=== PATIENT | female | born 1945 | race Caucasian/White ===

== ENCOUNTER 2017-04-20 08:54 | Emergency (ER) | payer MEDICARE, OTHER ==
--- NOTE | 2017-04-20 09:12 | ED Physician Documentation ---
PD HPI FEMALE - Stated complaint Stated Complaint: FEMALE - Chief complaint Chief Complaint: UTI - History obtained from History obtained from: Patient - History of Present Illness Timing - onset: How many days ago (3) Timing - duration: Days (3) Timing - details: Gradual onset Pain level max: 6 Pain level max: 4 Associated symptoms: Abdominal pain (RLQ), Back pain (chronic L5 back pain), Hematuria (pink today). No: Fever, Chest/shoulder pain, Vaginal discharge, Genital sore/lesion, Dysuria, Urinary frequency Similar symptoms before: Has not had sx before Recently seen: Not recently seen Review of Systems Ten Systems: 10 systems reviewed and negative Constitutional: denies: Fever, Chills Nose: denies: Rhinorrhea / runny nose, Congestion Throat: denies: Sore throat Respiratory: denies: Cough GI: denies: Nausea, Vomiting, Diarrhea Skin: denies: Rash Musculoskeletal: denies: Neck pain, Back pain Neurologic: denies: Focal weakness, Numbness, Headache PD PAST MEDICAL HISTORY - Past Medical History Past Medical History: Yes Cardiovascular: Hypertension, High cholesterol, Coronary artery disease Endocrine/Autoimmune: Type 2 diabetes, HyPOthyroidism - Past Surgical History Past Surgical History: Yes /INSPECTOR REPAIRER: Hysterectomy Cardiovascular: Coronary stent HEENT: Tonsil/Adenoidectomy - Present Medications Home Medications: Ambulatory Orders Medication Instructions Recorded Confirmed Aspirin [Aspir 81] 81 mg PO DAILY 07/16/13 04/20/17 Atenolol [Tenormin] 50 mg PO DAILY 07/16/13 04/20/17 Cetirizine HCl [Zyrtec] 10 mg PO DAILY 07/16/13 04/20/17 Levothyroxine Sodium [Levothroid] 50 mcg PO DAILY 07/16/13 04/20/17 Meclizine HCl 25 mg PO TID 07/16/13 04/20/17 Montelukast Sodium 10 mg PO DAILY 07/16/13 04/20/17 Sertraline HCl [Zoloft] 50 mg PO DAILY 07/16/13 04/20/17 Simvastatin [Zocor] 40 mg PO QPM 07/16/13 04/20/17 Nitrofurantoin [Macrobid] 100 mg PO BID #10 capsule 04/20/17 - Allergies Allergies/Adverse Reactions: Allergies Allergy/AdvReac Type Severity Reaction Status Date / Time amoxicillin trihydrate * Allergy Hives Verified 07/16/13 08:08 [From Augmentin] levocetirizine Allergy Rash Verified 07/16/13 08:07 dihydrochloride * [From Xyzal] potassium clavulanate * Allergy Hives Verified 07/16/13 08:08 [From Augmentin] sulfamethoxazole Allergy Rash Verified 07/16/13 08:08 [From Bactrim] Tetracyclines Allergy Rash Verified 07/16/13 08:06 trimethoprim [From Bactrim] Allergy Rash Verified 07/16/13 08:08 - Social History Does the pt smoke?: Yes Smoking Status: Current some day smoker Does the pt drink ETOH?: No Does the pt have substance abuse?: No - POLST Patient has POLST: No PD ED PE NORMAL - Vitals Vital signs reviewed: Yes - General General: Alert and oriented X 3, No acute distress - HEENT HEENT: Moist mucous membranes - Neck Neck: Supple, no meningeal sign - Cardiac Cardiac: RRR - Respiratory Respiratory: No respiratory distress, Clear bilaterally - Abdomen Abdomen: Soft, Other (TTP RLQ at McBurney's point. + guarding. + obturator and heel tap. ) - Back Back: No spinal TTP - Derm Derm: Warm and dry - Neuro Neuro: Alert and oriented X 3 - Psych Psych: Normal mood, Normal affect Results - Vitals Vitals: Vital Signs - 24 hr 04/20/17 04/20/17 08:57 11:26 Temperature 36.3 C L Heart Rate 73 60 Respiratory 18 17 Rate Blood Pressure 125/55 L 152/65 H O2 Saturation 99 100 Oxygen O2 Source Room air - Labs Labs: Laboratory Tests 04/20/17 04/20/17 04/20/17 09:07 09:30 09:30 WBC 9.6 RBC 4.76 Hgb 14.2 Hct 42.3 MCV 88.8 MCH 29.9 MCHC 33.6 RDW 13.7 Plt Count 180 MPV 8.2 Neut # 7.0 H Lymph # 1.5 [place] # 0.8 Eos # 0.3 Baso # 0.1 Absolute Nucleated RBC 0.01 Nucleated RBCs 0.1 Sodium 137 Potassium 4.2 Chloride 103 Carbon Dioxide 27 Anion Gap 7.0 BUN 13 Creatinine 1.1 H Estimated GFR (MDRD) 49 L Glucose 125 H Calcium 9.2 Total Bilirubin 0.9 AST 20 ALT 17 Alkaline Phosphatase 57 Total Protein 7.1 Albumin 3.9 Globulin 3.2 Albumin/Globulin Ratio 1.2 Lipase 34 Urine Color DARK YELLOW Urine Clarity CLOUDY Urine pH 7.0 Ur Specific Mcdermitt 1.020 Urine Protein 100 H Urine Glucose (UA) NEGATIVE Urine Ketones NEGATIVE Urine Occult Blood LARGE H Urine Nitrite POSITIVE H Urine Bilirubin UNREPORTABLE Urine Urobilinogen 1 (NORMAL) Ur Leukocyte Esterase MODERATE H Ur Microscopic Review NOT INDICATED Urine Culture Comments INDICATED - Rads (name of study) CT abd/pelvis Radiology: Prelim report reviewed, EMP read contemporaneously, See rad report ( Mild diffuse urinary bladder wall prominence. Question cystitis. Diverticulosis without convincing evidence for diverticulitis. Small normal appendix versus appendiceal stump posterior to cecum. No evidence for appendicitis. ) PD MEDICAL DECISION MAKING - ED course Complexity details: reviewed results, re-evaluated patient, considered differential, d/w patient ED course: Patient is a 72-year-old female who presents to the emergency department what appears to be a UTI. She is however very tender in the right lower quadrant near [facility] site, therefore a CT was performed. No acute findings on CT. Will place on antibiotics and follow-up with her doctor. She is well-appearing , nontoxic. Afebrile. Patient counseled regarding signs and symptoms for which I believe and urgent re-evaluation would be necessary. Patient with good understanding of and agreement to plan and is comfortable going home at this time This document was made in part using voice recognition software. While efforts are made to proofread this document, sound alike and grammatical errors may occur. Departure - Departure Disposition: 01 Home, Self Care Clinical Impression: Urinary tract infection Qualifiers: Urinary tract infection type: acute cystitis Hematuria presence: with hematuria Qualified Code(s): N30.01 - Acute cystitis with hematuria Condition: Good Instructions: ED UTI Cystitis Female Follow-Up: Charito Mireles PA-C [Primary Care Provider] - Within 1 week Prescriptions: Nitrofurantoin [Macrobid] 100 mg PO BID #10 capsule Comments: Take all antibiotics until gone. Return if you worsen. Discharge Date/Time: 04/20/17 11:47
[2017-04-20] MEDS ORDERED: SODIUM CHLORIDE 0.9% 1,000 ML IV ONE (09:20)
[2017-04-20] MEDS ORDERED: SODIUM CHLORIDE FLUSH 0.9% 10 ML SYRINGE IVP ONE (09:24)
[2017-04-20 09:35] LABS: BILIRUBIN,URINE UNREPORTABLE (NEGATIVE); UA CHARGE (STRIP ONLY) YES
[2017-04-20 09:35] LABS: BASOPHILS # (AUTO) 0.1 10^3/uL (0.0-0.1); BASOPHILS % (AUTO) 0.7 %; EOSINOPHILS # (AUTO) 0.3 10^3/uL (0.0-0.7); EOSINOPHILS % (AUTO) 2.7 %; HCT - HEMATOCRIT 42.3 % (37.0-47.0); HGB - HEMOGLOBIN 14.2 g/dL (12.0-16.0); LYMPHOCYTES # (AUTO) 1.5 10^3/uL (1.5-3.5); LYMPHOCYTES % (AUTO) 15.7 %; MEAN CORPUSCULAR HEMOGLOBIN 29.9 pg (27.0-31.0); MEAN CORPUSCULAR HGB CONC 33.6 g/dL (32.0-36.0); MEAN CORPUSCULAR VOLUME 88.8 fL (81.0-99.0); MEAN PLATELET VOLUME 8.2 fL (7.9-10.8); MONOCYTES # (AUTO) 0.8 10^3/uL (0.0-1.0); NEUTROPHILS % (AUTO) 72.9 %; NUCLEATED RED BLOOD CELLS AUTO 0.1 /100WBC; RED BLOOD COUNT 4.76 10^6/uL (4.20-5.40); RED CELL DISTRIBUTION WIDTH 13.7 % (12.0-15.0); UNCORRECTED WHITE BLOOD COUNT 9.6 x10^3/uL; WHITE BLOOD COUNT 9.6 x10^3/uL (4.8-10.8)
[2017-04-20 09:36] LABS: UR CULTURE IF IND INDICATED
[2017-04-20 09:47] LABS: ALBUMIN/GLOBULIN RATIO 1.2 (1.0-2.2); BILIRUBIN,TOTAL 0.9 mg/dL (0.2-1.0); CALCIUM 9.2 mg/dL (8.5-10.3); CREATININE 1.1 mg/dL (0.4-1.0); POTASSIUM 4.2 mmol/L (3.5-5.0); TOTAL PROTEIN 7.1 g/dL (6.7-8.2)
[2017-04-20] MEDS ORDERED: IOPAMIDOL-300 100 ML VIAL IVP ONE (11:04)
[2017-04-20 11:26] VITALS: BP 152/65
--- NOTE | 2017-04-20 11:28 | CT Preliminary Report ---
Exam: CT Abdomen/Pelvis W/ IMPRESSION: 1. Mild diffuse urinary bladder wall prominence. Question cystitis. 2. Diverticulosis without convincing evidence for diverticulitis. 3. Small normal appendix versus appendiceal stump posterior to cecum. No evidence for appendicitis. [facility] SITE ID: [id number]
--- NOTE | 2017-04-20 11:30 | CT Report ---
EXAM: CT ABDOMEN AND PELVIS EXAM DATE: 04/20/2017 11:05 AM. CLINICAL HISTORY: RLQ pain. COMPARISONS: None. TECHNIQUE: Routine helical CT imaging was performed through the abdomen and pelvis. IV contrast: 100 cc Isovue 300. Enteric contrast: No. Reconstructions: Coronal and sagittal. In accordance with CT protocol optimization, one or more of the following dose reduction techniques w ere utilized for this exam: automated exposure control, adjustment of mA and/or KV based on patient s ize, or use of iterative reconstructive technique. FINDINGS: Lung Bases: At least moderate coronary arterial calcification. Liver: 1.8 cm right liver lobe cyst. No suspicious mass. Gallbladder/Bile Ducts: Unremarkable. Spleen: Normal. Pancreas: Normal. Adrenal Glands: Normal. Kidneys: 2.1 cm posterior left upper renal cyst. No hydronephrosis involving either kidney. Peritoneal Cavity/Bowel: Diverticulosis. Sigmoid colon is poorly distended, potentially limiting eval uation. No definite inflammatory changes. No dilated bowel. Liquid stool noted in nondilated cecum wi thin ventral right hemipelvis. Small normal appendix versus appendiceal stump posterior to cecum. Pelvic Organs: Prior hysterectomy. No bladder stone or obvious mass. Bladder is only partially disten ded. Mild diffuse bladder wall prominence. Vasculature: Extensive atherosclerotic arterial calcifications. No abdominal aortic aneurysm. Bones: Lumbar spine degenerative changes. Grade 1 anterolisthesis of L4 on L5 vertebral body. Grade 1 retrolisthesis of L2 on L3 vertebral body. Other: None. IMPRESSION: 1. Mild diffuse urinary bladder wall prominence. Question cystitis. 2. Diverticulosis without convincing evidence for diverticulitis. 3. Small normal appendix versus appendiceal stump posterior to cecum. No evidence for appendicitis. [facility] Referring Provider Line: [phone] SITE ID: [id number]
== END 2017-04-20 11:47 | disposition home or self-care (01) ==
LOC: ED 08:54
DX: I10 Essential (primary) hypertension (principal); E78.00 Pure hypercholesterolemia, unspecified; I25.10 Atherosclerotic heart disease of native coronary artery without angina pectoris; E11.9 Type 2 diabetes mellitus without complications; E03.9 Hypothyroidism, unspecified; Z79.82 Long term (current) use of aspirin; F17.200 Nicotine dependence, unspecified, uncomplicated
CPT/HCPCS: 36415; 74177; 80053; 81003; 83690; 85025; 87086; 96360; 99283; Q9967; 81001

== ENCOUNTER 2017-05-26 10:04 | Outpatient (CLI) | payer MEDICARE, OTHER ==
[2017-05-26 14:35] LABS: ALBUMIN/GLOBULIN RATIO 1.3 (1.0-2.2); BILIRUBIN,TOTAL 0.9 mg/dL (0.2-1.0); BUN - BLOOD UREA NITROGEN 14 mg/dL (6-20); CALCIUM 9.1 mg/dL (8.5-10.3); CARBON DIOXIDE - CO2 27 mmol/L (21-32); CHLORIDE 106 mmol/L (101-111); CHOL/HDL RATIO 4.6 (<4.4); CHOLESTEROL 143 mg/dL; CREATININE 0.9 mg/dL (0.4-1.0); GFR - MDRD 62 (>89); GLUCOSE 98 mg/dL (70-100); HDL CHOLESTEROL 31 mg/dL; LDL/HDL RATIO 2.5 (<4.4); POTASSIUM 4.7 mmol/L (3.5-5.0); SODIUM 137 mmol/L (135-145); TOTAL PROTEIN 6.6 g/dL (6.7-8.2); TRIGLYCERIDES 172 mg/dL; VLDL CHOLESTEROL 34 mg/dL
== END 2017-05-26 10:05 | disposition home or self-care (01) ==
LOC: LAB.WCP 10:04
PROVIDERS: ATTEND Physician Assistant Medical
DX: E78.5 Hyperlipidemia, unspecified (principal); E03.9 Hypothyroidism, unspecified
CPT/HCPCS: 36415; 80053; 80061; 84443

== ENCOUNTER 2017-11-17 12:32 | Outpatient (CLI) | payer MEDICARE, OTHER ==
--- NOTE | 2017-11-17 15:03 | Ultrasound Report ---
CAROTID DUPLEX: 11/17/2017 CLINICAL INDICATION: Right-sided bruit. TECHNIQUE: Real-time sonographic vascular imaging was performed by the air reduction equipment operator through the carotid arteries utilizing both color-flow and Doppler spectral analysis. Multiple major account representative static images were saved for review. RIGHT Vessel PSV cm/sec EDV cm/sec ICA/CCA RSV Ratio Degree of Stenosis Plaque Estimate % RCCA Prox 85 RCCA Dist 51 11 RECA 393 RT BULB 390 59 7.6 >70 HETAL Prox 406 55 7.9 >70 HETAL Mid 168 3.2 3.2 >70 HETAL Dist 98 2.2 1.9 RVA 56 RVA flow direction: Antegrade LEFT Vessel PSV cm/sec EDV cm/sec ICA/CCA RSV Ratio Degree of Stenosis Plaque Estimate % LCCA Prox 113 LCCA Dist 99 25 LECA 183 LFT BULB 223 59 2.2 50-69 LICA Prox 192 55 1.9 LICA Mid 110 36 1.1 LICA Dist 77 25 .77 LVA 75 LVA flow direction: Antegrade Velocity criteria are extrapolated from diameter data as defined by the Society of Radiologists in Ultrasound Consensus Conference Radiology 2003; 229; 340-346. Degree of Stenosis % ICA PSV cm/sec ICA EDV cm/sec ICA/CCA PSV Ratio Plaque Estimate % Normal < 125 < 40 < 2.0 None <50 < 125 <40 < 2.0 < 50 50-69 125-130 40-100 2.0-4.0 >/=50 >/=70 but less than near occlusion > 230 > 100 > 4.0 >/=50 Near occlusion High, low or undetectable Variable Variable Visible Total occlusion Undetectable Not applicable Not applicable No detectable lumen FINDINGS RIGHT: There is extensive calcified plaquing in the right carotid bifurcation and proximal internal carotid artery, producing greater than 70% luminal diameter stenosis by velocity criteria. LEFT: There is calcified plaquing in the left carotid bifurcation, producing 50- 70% luminal diameter stenosis of the carotid bulb by velocity criteria. The vertebral arteries demonstrate antegrade flow bilaterally. IMPRESSION: RIGHT WORSE THAN LEFT CAROTID PLAQUING, PRODUCING GREATER THAN 70% LUMINAL DIAMETER NARROWING OF THE PROXIMAL RIGHT INTERNAL CAROTID ARTERY BY VELOCITY CRITERIA. MTDD
== END 2017-11-17 12:33 | disposition home or self-care (01) ==
LOC: DI 12:32
PROVIDERS: ATTEND Physician Assistant Medical
DX: I65.23 Occlusion and stenosis of bilateral carotid arteries (principal)
CPT/HCPCS: 93880

== ENCOUNTER 2019-01-12 08:00 | Outpatient (CLI) | payer MEDICARE, OTHER ==
[2019-01-12 13:33] LABS: HB2 TOTAL 15.3 g/dL; HEMOGLOBIN A1C 0.65 g/dL
[2019-01-12 13:38] LABS: ALBUMIN 3.7 g/dL (3.2-5.5); ALBUMIN/GLOBULIN RATIO 1.2 (1.0-2.2); ALKALINE PHOSPHATASE 70 IU/L (42-121); ALT ALANINE AMINOTRANSFERASE 21 IU/L (10-60); AST ASPARTATE AMINOTRANSFERASE 26 IU/L (10-42); BILIRUBIN,TOTAL 0.7 mg/dL (0.2-1.0); BUN - BLOOD UREA NITROGEN 15 mg/dL (6-20); CALCIUM 9.2 mg/dL (8.5-10.3); CARBON DIOXIDE - CO2 27 mmol/L (21-32); CHLORIDE 105 mmol/L (101-111); CHOL/HDL RATIO 3.4 (<4.4); CHOLESTEROL 130 mg/dL; CREATININE 0.9 mg/dL (0.4-1.0); GFR - MDRD 61 (>89); GLUCOSE 119 mg/dL (70-100); HDL CHOLESTEROL 38 mg/dL; LDL CHOLESTEROL,CALCULATED 68 mg/dL; LDL/HDL RATIO 1.8 (<4.4); SODIUM 138 mmol/L (135-145); TOTAL PROTEIN 6.7 g/dL (6.7-8.2); VLDL CHOLESTEROL 24 mg/dL
== END 2019-01-12 08:01 | disposition home or self-care (01) ==
LOC: LAB.WCP 08:00
PROVIDERS: ATTEND Physician Assistant Medical
DX: E78.5 Hyperlipidemia, unspecified (principal); E11.9 Type 2 diabetes mellitus without complications; I10 Essential (primary) hypertension
CPT/HCPCS: 36415; 80053; 80061; 83036; 83721; 84443

== ENCOUNTER 2021-01-17 08:00 | Outpatient (CLI) | payer MEDICARE, OTHER ==
[2021-01-17 18:34] LABS: CREATININE,URINE 152.6 mg/dL; MICROALBUMIN,URINE 0.3 mg/dL (0-300.0)
[2021-01-17 18:35] LABS: BASOPHILS # (AUTO) 0.1 10^3/uL (0.0-0.1); BASOPHILS % (AUTO) 0.5 %; EOSINOPHILS # (AUTO) 0.2 10^3/uL (0.0-0.7); EOSINOPHILS % (AUTO) 1.9 %; HCT - HEMATOCRIT 48.9 % (37.0-47.0); HGB - HEMOGLOBIN 15.5 g/dL (12.0-16.0); LYMPHOCYTES # (AUTO) 1.8 10^3/uL (1.5-3.5); LYMPHOCYTES % (AUTO) 18.2 %; MEAN CORPUSCULAR HEMOGLOBIN 30.8 pg (27.0-31.0); MEAN CORPUSCULAR HGB CONC 31.7 g/dL (32.0-36.0); MEAN CORPUSCULAR VOLUME 97.2 fL (81.0-99.0); MEAN PLATELET VOLUME 11.2 fL (7.9-10.8); MONOCYTES # (AUTO) 0.6 10^3/uL (0.0-1.0); MONOCYTES % (AUTO) 6.1 %; NEUTROPHILS # (AUTO) 7.2 10^3/uL (1.5-6.6); NEUTROPHILS % (AUTO) 72.9 %; PLT - PLATELET COUNT 218 10^3/uL (130-450); RED BLOOD COUNT 5.03 10^6/uL (4.20-5.40); RED CELL DISTRIBUTION WIDTH 13.6 % (12.0-15.0); WHITE BLOOD COUNT 9.9 x10^3/uL (4.8-10.8)
[2021-01-17 18:42] LABS: ALBUMIN 4.1 g/dL (3.2-5.5); ALBUMIN/GLOBULIN RATIO 1.2 (1.0-2.2); ALKALINE PHOSPHATASE 65 IU/L (42-121); ALT ALANINE AMINOTRANSFERASE 13 IU/L (10-60); AST ASPARTATE AMINOTRANSFERASE 16 IU/L (10-42); BUN - BLOOD UREA NITROGEN 20 mg/dL (6-20); CALCIUM 9.4 mg/dL (8.5-10.3); CARBON DIOXIDE - CO2 28 mmol/L (21-32); CHLORIDE 100 mmol/L (101-111); CHOL/HDL RATIO 3.8 (<4.4); CHOLESTEROL 146 mg/dL; GFR - MDRD 54 (>89); GLUCOSE 114 mg/dL (70-100); HDL CHOLESTEROL 38 mg/dL; LDL CHOLESTEROL,CALCULATED 68 mg/dL; LDL/HDL RATIO 1.8 (<4.4); POTASSIUM 4.8 mmol/L (3.5-5.0); SODIUM 139 mmol/L (135-145); TOTAL PROTEIN 7.5 g/dL (6.7-8.2); TRIGLYCERIDES 200 mg/dL; VLDL CHOLESTEROL 40 mg/dL
[2021-01-17 18:57] LABS: THYROID STIMULATING HORMONE 1.83 uIU/mL (0.34-5.60)
[2021-01-17 19:00] LABS: ESTIMATED AVERAGE GLUCOSE 128 mg/dL (70-100); HEMOGLOBIN A1c% 6.1 % (4.27-6.07)
== END 2021-01-17 23:59 | disposition home or self-care (01) ==
LOC: LAB.WCP 08:00
PROVIDERS: ATTEND Physician Assistant Medical
DX: E78.5 Hyperlipidemia, unspecified (principal); E11.9 Type 2 diabetes mellitus without complications; E03.9 Hypothyroidism, unspecified; J30.2 Other seasonal allergic rhinitis; R35.1 Nocturia
CPT/HCPCS: 36415; 80053; 80061; 82043; 82570; 83036; 83721; 84443; 85025; 87077; 87086

== ENCOUNTER 2021-09-12 08:00 | Outpatient (CLI) | payer MEDICARE, OTHER ==
[2021-09-12 18:20] LABS: BASOPHILS # (AUTO) 0.1 10^3/uL (0.0-0.1); BASOPHILS % (AUTO) 0.5 %; EOSINOPHILS # (AUTO) 0.2 10^3/uL (0.0-0.7); EOSINOPHILS % (AUTO) 2.5 %; HCT - HEMATOCRIT 45.5 % (37.0-47.0); HGB - HEMOGLOBIN 14.7 g/dL (12.0-16.0); LYMPHOCYTES # (AUTO) 1.7 10^3/uL (1.5-3.5); LYMPHOCYTES % (AUTO) 17.9 %; MEAN CORPUSCULAR HEMOGLOBIN 31.2 pg (27.0-31.0); MEAN CORPUSCULAR HGB CONC 32.3 g/dL (32.0-36.0); MEAN CORPUSCULAR VOLUME 96.6 fL (81.0-99.0); MEAN PLATELET VOLUME 10.8 fL (7.9-10.8); MONOCYTES # (AUTO) 0.7 10^3/uL (0.0-1.0); MONOCYTES % (AUTO) 7.7 %; NEUTROPHILS # (AUTO) 6.7 10^3/uL (1.5-6.6); NEUTROPHILS % (AUTO) 70.8 %; PLT - PLATELET COUNT 251 10^3/uL (130-450); RED BLOOD COUNT 4.71 10^6/uL (4.20-5.40); WHITE BLOOD COUNT 9.4 x10^3/uL (4.8-10.8)
[2021-09-12 18:25] LABS: CREATININE,URINE 185.5 mg/dL; MICROALBUM/CREATININE RATIO,UR 1.1 ug/mg (<30.0); MICROALBUMIN,URINE 0.2 mg/dL (0-300.0)
[2021-09-12 18:40] LABS: BUN - BLOOD UREA NITROGEN 23 mg/dL (6-20); CALCIUM 9.5 mg/dL (8.5-10.3); CARBON DIOXIDE - CO2 27 mmol/L (21-32); CHLORIDE 101 mmol/L (101-111); CHOL/HDL RATIO 4.8 (<4.4); CHOLESTEROL 140 mg/dL; GFR - MDRD 54 (>89); GLUCOSE 111 mg/dL (70-100); HDL CHOLESTEROL 29 mg/dL; LDL CHOLESTEROL,CALCULATED 73 mg/dL; LDL/HDL RATIO 2.5 (<4.4); POTASSIUM 4.8 mmol/L (3.5-5.0); SODIUM 136 mmol/L (135-145); TRIGLYCERIDES 190 mg/dL; VLDL CHOLESTEROL 38 mg/dL
[2021-09-12 18:48] LABS: THYROID STIMULATING HORMONE 1.99 uIU/mL (0.34-5.60)
[2021-09-12 20:54] LABS: ESTIMATED AVERAGE GLUCOSE 126 mg/dL (70-100)
== END 2021-09-12 23:59 ==
LOC: LAB.WCP 08:00
PROVIDERS: ATTEND Physician Assistant Medical
DX: I25.10 Atherosclerotic heart disease of native coronary artery without angina pectoris (principal); E11.9 Type 2 diabetes mellitus without complications; E03.9 Hypothyroidism, unspecified; J30.2 Other seasonal allergic rhinitis
CPT/HCPCS: 36415; 80048; 80061; 82043; 82570; 83036; 83721; 84443; 85025

== ENCOUNTER 2023-01-14 15:31 | Emergency (ER) | payer MEDICARE, OTHER ==
[2023-01-14 16:06] LABS: BASOPHILS % (AUTO) 0.3 %; EOSINOPHILS # (AUTO) 0.1 10^3/uL (0.0-0.7); EOSINOPHILS % (AUTO) 0.8 %; HCT - HEMATOCRIT 36.3 % (37.0-47.0); HGB - HEMOGLOBIN 11.3 g/dL (12.0-16.0); LYMPHOCYTES # (AUTO) 1.5 10^3/uL (1.5-3.5); LYMPHOCYTES % (AUTO) 9.6 %; MEAN CORPUSCULAR HEMOGLOBIN 27.6 pg (27.0-31.0); MEAN CORPUSCULAR HGB CONC 31.1 g/dL (32.0-36.0); MEAN CORPUSCULAR VOLUME 88.5 fL (81.0-99.0); MEAN PLATELET VOLUME 8.6 fL (7.9-10.8); MONOCYTES # (AUTO) 0.9 10^3/uL (0.0-1.0); MONOCYTES % (AUTO) 5.9 %; NEUTROPHILS % (AUTO) 82.4 %; PLT - PLATELET COUNT 374 10^3/uL (130-450); WHITE BLOOD COUNT 15.7 x10^3/uL (4.8-10.8)
--- NOTE | 2023-01-14 16:08 | ED Physician Documentation ---
History of Present Illness - Stated complaint Stated Complaint: CHEST PX/SOA - Chief complaint Chief Complaint: Resp - Additonal information Additional information: 77-year-old female presents to the emergency department with her daughter for evaluation of worsening dyspnea and chest pain. The patient provides most of the history. She continues to be an active daily tobacco user. States she has had chest pain and shortness of breath for years though it acutely worse over the last week. Her daughter reports that years ago she was told about a mass within her chest while being cared for at [facility] and the patient did not follow-up. Patient states she is lost 50 pounds over the last year. She is chronically fatigued. The patient is not good at follow-up with her PCP. Reportedly she takes atenolol for hypertension and levothyroxine only. She also has a history of right ICA stenting. Has not had follow-up of this in years. She has no focal or lateralizing neurodeficits. At the bedside her daughter is crying and tearful. Frustrated that her mother has not followed up or gotten care recently. Review of Systems Constitutional: denies: Fatigue, Weight Loss Eyes: reports: Reviewed and negative Nose: reports: Reviewed and negative Cardiac: reports: Chest pain / pressure. denies: Palpitations, Pedal edema, Calf pain Respiratory: reports: Dyspnea. denies: Cough, Hemoptysis, Wheezing GI: reports: Reviewed and negative : reports: Reviewed and negative Skin: reports: Reviewed and negative PD PAST MEDICAL HISTORY - Past Medical History Cardiovascular: Hypertension, High cholesterol, Coronary artery disease Endocrine/Autoimmune: Type 2 diabetes, HyPOthyroidism - Past Surgical History Past Surgical History: Yes /CONTINUOUS IMPROVEMENT BLACK BELT: Hysterectomy Cardiovascular: Coronary stent HEENT: Tonsil/Adenoidectomy - Present Medications Home Medications: Ambulatory Orders Medication Instructions Recorded Confirmed Aspirin [Aspir 81] 81 mg PO DAILY 07/16/13 04/20/17 Cetirizine HCl [Zyrtec] 10 mg PO DAILY 07/16/13 04/20/17 Levothyroxine Sodium [Levothroid] 50 mcg PO DAILY 07/16/13 04/20/17 Meclizine HCl 25 mg PO TID 07/16/13 04/20/17 Montelukast Sodium 10 mg PO DAILY 07/16/13 04/20/17 Sertraline HCl [Zoloft] 50 mg PO DAILY 07/16/13 04/20/17 Simvastatin [Zocor] 40 mg PO QPM 07/16/13 04/20/17 atenoloL [Tenormin] 50 mg PO DAILY 07/16/13 04/20/17 Nitrofurantoin [Macrobid] 100 mg PO BID #10 capsule 04/20/17 - Allergies Allergies/Adverse Reactions: Allergies Allergy/AdvReac Type Severity Reaction Status Date / Time amoxicillin trihydrate * Allergy Hives Verified 01/14/23 15:43 [From Augmentin] levocetirizine Allergy Rash Verified 01/14/23 15:43 dihydrochloride * [From Xyzal] potassium clavulanate * Allergy Hives Verified 01/14/23 15:43 [From Augmentin] sulfamethoxazole Allergy Rash Verified 01/14/23 15:43 [From Bactrim] Tetracyclines Allergy Rash Verified 01/14/23 15:43 trimethoprim [From Bactrim] Allergy Rash Verified 01/14/23 15:43 - Social History Does the pt smoke?: Yes Smoking Status: Current some day smoker Does the pt drink ETOH?: No Does the pt have substance abuse?: No - POLST Patient has POLST: No PD ED PE NORMAL - General General: Alert and oriented X 3, Well developed/nourished (Thin cachectic geriatric appearance). No: No acute distress (Mild tachypnea at rest. Room air saturations 94 to 98%. Speaking in full sentences) - HEENT HEENT: Atraumatic. No: Dentition benign (Adentulous) - Neck Neck: Supple, no meningeal sign. No: No adenopathy - Cardiac Cardiac: RRR, Strong equal pulses. No: No murmur (3/6 systolic murmur) - Respiratory Respiratory: No respiratory distress. No: Clear bilaterally (Diffusely diminished breath sounds in the right upper middle and lower lobes. Clear breath sounds left) - Abdomen Abdomen: Normal bowel sounds, Soft - Extremities Extremities: No deformity, No tenderness to palpate, Normal ROM s pain, No edema, Other - Neuro Neuro: Alert and oriented X 3, elevator erector helper 2-12 intact, No motor deficit Eye Opening: Spontaneous Motor: Obeys Commands Verbal: Oriented GCS Score: 15 Results - Vitals Vitals: Vital Signs - 24 hr 01/14/23 01/14/23 01/14/23 15:39 16:30 17:52 Temperature 36.1 C L Heart Rate 79 71 88 Respiratory 20 16 16 Rate Blood Pressure 104/45 L 124/72 138/69 H O2 Saturation 99 94 93 01/14/23 01/14/23 01/14/23 19:58 20:30 21:39 Temperature Heart Rate 80 86 80 Respiratory 18 22 15 Rate Blood Pressure 131/53 H 149/134 H 164/50 H O2 Saturation 92 96 92 Oxygen O2 Source Room air - EKG (time done) 1544 EKG releavant findings:: EKG personally interpreted by author of this note. Relevant findings are: Rate: Rate (enter#) (79) Rhythm: NSR [place]: Normal Intervals: Normal TN. No: Prolonged QT QRS: Normal Ischemia: Q waves (V5-V^) Compare to prior EKG: Old EKG unavailable Computer interpretation: Agree with computer - Labs Labs: Laboratory Tests 01/14/23 01/14/23 01/14/23 16:00 16:00 16:00 WBC 15.7 H RBC 4.10 L Hgb 11.3 L Hct 36.3 L MCV 88.5 MCH 27.6 MCHC 31.1 L RDW 15.0 Plt Count 374 MPV 8.6 Neut # (Auto) 13.0 H Lymph # (Auto) 1.5 Henry # (Auto) 0.9 Eos # (Auto) 0.1 Baso # (Auto) 0.0 Absolute Nucleated RBC 0.00 Nucleated RBC % 0.0 Sodium 131 L Potassium 4.5 Chloride 93 L Carbon Dioxide 28 Anion Gap 10.0 BUN 22 H Creatinine 1.0 Estimated GFR (MDRD) 54 L Glucose 152 H Calcium 8.8 Total Bilirubin 0.2 AST 12 ALT 12 Alkaline Phosphatase 83 Troponin I High Sens 6.2 B-Natriuretic Peptide Total Protein 6.5 L Albumin 2.8 L Globulin 3.7 Albumin/Globulin Ratio 0.8 L Lipase 37 TSH Free T4 01/14/23 01/14/23 16:00 16:00 WBC RBC Hgb Hct MCV MCH MCHC RDW Plt Count MPV Neut # (Auto) Lymph # (Auto) Henry # (Auto) Eos # (Auto) Baso # (Auto) Absolute Nucleated RBC Nucleated RBC % Sodium Potassium Chloride Carbon Dioxide Anion Gap BUN Creatinine Estimated GFR (MDRD) Glucose Calcium Total Bilirubin AST ALT Alkaline Phosphatase Troponin I High Sens B-Natriuretic Peptide 60 Total Protein Albumin Globulin Albumin/Globulin Ratio Lipase TSH 2.20 Free T4 1.10 - Rads (name of study) cxr Relevant Findings:: Final report received (Masslike consolidation in the right mid and lower lung suspicious for pneumonia and/or mass. There are also diffuse interstitial prominence; consider CT follow-up) CT chest w Relevant Findings:: Final report received PD Medical Decision Making - ED course Complexity details: reviewed results, considered differential, d/w patient, d/w family ED course: 77-year-old female who has a history of active tobaccoism presents to the emergency department for evaluation of acute on chronic shortness of air. She reports that she has been short of breath since [facility]. She is not on any home oxygen and does not carry a formal diagnosis of COPD. However her daughters have found that over the last several weeks she has had progressive dyspnea as well as orthopnea especially at night. No fevers. No changes in her baseline productive cough. She does have a history in which she was told several years ago that there was a mass [facility] chest at [facility] in [place]. However she did not follow-up for further evaluation of this. Here in the emergency department she appears older than stated age. She has room air saturations in the low to mid 90s. On exam she did have diminished breath sounds on the right side. I did obtain initial CBC and electrolytes. Per my interpretation there is some mild leukocytosis with white count of 15.7 thousand. Her electrolytes showed no acute worrisome findings. An initial chest x-ray as interpreted by the radiologist showed a masslike consolidation in the right mid and lower lung Sipp is suspicious for pneumonia and/or mass. With this interpretation I then obtained a CT of the chest with contrast. Subsequently was completed and it does show a 6 cm pulmonary abscess in the right mid lung. I discussed this case briefly with our on-call surgeon Dr. Rutherford. Though initially abscesses are treated with IV antibiotics and monitored to find improvement he did not feel the patient would be appropriate for treatment here at [facility] as we have no CT surgery available and the procedure she would likely require for treatment of a nonresolving pulmonary abscess could not be managed here. Therefore [facility]. In the interim the patient will be started on ceftriaxone and azithromycin. I had initially ordered meropenem given the patient's allergy profile but in conversation with Alden the pharmacist she felt that third- generation cephalosporin and Flagyl would likely be appropriate, thus this was ordered. I did obtain blood cultures x2 prior to the initiation of antibiotics. I did spend some time with the patient at the bedside as well as her daughter and [id number] discussing the clinical findings and the indication for transfer. They are aware that time to transfer could likely take several days. 2154: [facility] cardiothoracic surgeon Dr. Herzog Has reached out to us. After discussing the case he feels the patient is likely appropriate to transfer pending bed availability which may not occur until tomorrow. He is requesting a lactate and respiratory PCR which are pending. Patient will be signed out to my nighttime colleague to follow-up on any acute events overnight. 2204: [facility] transfer center has called back to inform us that the patient has been formally accepted pending bed availability which is likely tomorrow after discharges. The accepting attending is Dr. Cerrato. Departure - Departure Disposition: 02 Transfer Acute Care Hosp Clinical Impression: Pulmonary abscess Qualifiers: Pulmonary abscess pneumonia presence: without pneumonia Laterality: right Lung location: middle lobe of lung Qualified Code(s): J85.2 - Abscess of lung without pneumonia Condition: Serious
--- NOTE | 2023-01-14 16:22 | XRAY Report ---
PROCEDURE: Chest 1 View X-Ray INDICATIONS: Chest pain TECHNIQUE: One view of the chest was acquired. COMPARISON: 03/18/2018 FINDINGS: Surgical changes and devices: None. Lungs and pleura: Right mid and lower lung consolidation. There is also mildly prominent interstitiu m bilaterally. No pleural effusions. Mediastinum: Mediastinal contours appear normal. Heart size is normal. Bones and chest wall: No suspicious bony lesions. Overlying soft tissues appear unremarkable. IMPRESSION: Masslike consolidation in the right mid and lower lung, suspicious for pneumonia and/or mass. There i s also diffuse interstitial prominence. Consider CT follow-up. Reviewed by: Gregg Calero MD on 01/14/2023 4:20 PM PDT Approved by: Gregg Calero MD on 01/14/2023 4:20 PM PDT Station ID: [id number]
[2023-01-14 16:30] LABS: ALBUMIN 2.8 g/dL (3.2-5.5); ALBUMIN/GLOBULIN RATIO 0.8 (1.0-2.2); BILIRUBIN,TOTAL 0.2 mg/dL (0.2-1.0); CALCIUM 8.8 mg/dL (8.5-10.3); POTASSIUM 4.5 mmol/L (3.5-5.0); TOTAL PROTEIN 6.5 g/dL (6.7-8.2)
[2023-01-14 16:44] LABS: THYROID STIMULATING HORMONE 2.2 uIU/mL (0.34-5.60)
[2023-01-14 16:46] LABS: FREE T4 (FREE THYROXINE) 1.1 ng/dL (0.58-1.64)
[2023-01-14] MEDS ORDERED: iohexoL-300 100 ML VIAL ONE (16:51)
--- NOTE | 2023-01-14 17:54 | CT Report ---
PROCEDURE: CHEST W INDICATIONS: ? mass vs pna in right lung CONTRAST: 100mL Omni 300 TECHNIQUE: After the administration of intravenous contrast, 1 mm axial images were acquired from the pulmonary apices through the posterior costophrenic angles. Axial 5 mm soft tissue kernel reconstructions were performed as well as 8 mm axial MIP and coronal and sagittal 5 mm reformations. For radiation dose reduction, the following was used: automated exposure control, adjustment of mA and/or kV according to patient size. COMPARISON: None. FINDINGS: Image quality: Excellent. Lungs and pleura: A 6 cm abscess in the right middle lobe adjacent to the fissure with an air-fluid l evel. There is a small right pleural effusion. No suspicious pulmonary nodules which require follow u p. Mediastinum: Heart size is normal. No pericardial effusions. No mediastinal adenopathy by size criter ia. No large vessel abnormality. The coronary arteries have atherosclerotic calcifications. Chest wall and lower neck: Thyroid is unremarkable. No axillary or supraclavicular adenopathy by size . Bones: No aggressive osseous abnormality. Upper Abdomen: The liver, pancreas, spleen, and both kidneys have no acute abnormality. The left kidn ey has a 3 cm cyst. IMPRESSION: 1. 6 cm right middle lobe abscess. 2. Right lower lobe pleural effusion. Reviewed by: Jax Garcia on 01/14/2023 5:53 PM PDT Approved by: Jax Garcia on 01/14/2023 5:53 PM PDT Station ID: [id number]
[2023-01-14] MEDS ORDERED: MEROPENEM 1 GM in SODIUM CHLORIDE 0.9% MINIBAG 100 ML IV SCH ×2 (18:00→18:32)
[2023-01-14] MEDS ORDERED: cefTRIAXone 2 GM in SODIUM CHLORIDE 0.9% MINIBAG 100 ML IV STA (18:35)
[2023-01-14] MEDS ORDERED: metroNIDAZOLE 500 MG/100 ML 500 MG/100 ML BAG IV SCH (19:00)
[2023-01-14] MEDS ORDERED: NICOTINE 7 MG PATCH TOP SCH (19:15)
[2023-01-14] MEDS ORDERED: SODIUM CHLORIDE 0.9% 1,000 ML IV STA (21:08)
[2023-01-14] MEDS ORDERED: iohexoL-300 100 ML VIAL IVP ONE (21:21)
[2023-01-14 23:21] LABS: B. PARAPERTUSSIS- RESP PCR PAN NOT DETECTED; B. PERTUSSIS- RESP PCR PANEL NOT DETECTED; C. PNEUMONIAE- RESP PCR PANEL NOT DETECTED; CORONAVIRUS 229E-RESP PCR NOT DETECTED; CORONAVIRUS HKU1-RESP PCR NOT DETECTED; CORONAVIRUS NL63-RESP PCR NOT DETECTED; CORONAVIRUS OC43-RESP PCR NOT DETECTED; HUMAN METAPNEUMOVIRUS NOT DETECTED; INFLUENZA A- RESP PCR PANEL NOT DETECTED; INFLUENZA B - RESP PCR PANEL NOT DETECTED; M. PNEUMONIAE- RESP PCR PANEL NOT DETECTED; PARAINFLUENZA VIRUS 1 NOT DETECTED; PARAINFLUENZA VIRUS 2 NOT DETECTED; PARAINFLUENZA VIRUS 3 NOT DETECTED; PARAINFLUENZA VIRUS 4 NOT DETECTED; RHINOVIRUS/ENTEROVIRUS NOT DETECTED; RSV- RESP PCR PANEL NOT DETECTED; SARS-CoV-2 -RESP PCR PANEL NOT DETECTED
[2023-01-15 02:21] VITALS: BP 130/58
[2023-01-15] MEDS ORDERED: cefTRIAXone 2 GM in SODIUM CHLORIDE 0.9% MINIBAG 100 ML IV SCH (18:00)
== END 2023-01-15 02:48 | disposition short-term general hospital (02) ==
LOC: ED 15:31
DX: J85.2 Abscess of lung without pneumonia (principal); F17.200 Nicotine dependence, unspecified, uncomplicated; R53.83 Other fatigue; I10 Essential (primary) hypertension; E11.9 Type 2 diabetes mellitus without complications; E03.9 Hypothyroidism, unspecified; I25.10 Atherosclerotic heart disease of native coronary artery without angina pectoris; E78.00 Pure hypercholesterolemia, unspecified; Z95.5 Presence of coronary angioplasty implant and graft; Z95.820 Peripheral vascular angioplasty status with implants and grafts; Z20.822 Contact with and (suspected) exposure to COVID-19
CPT/HCPCS: 36415; 71045; 71260; 80053; 83605; 83690; 83880; 84439; 84443; 84484; 85025; 87040; 87633; 93005; 96365; 96367; 99285; A9270; Q9967